=== PATIENT | male | born 1985 | race Caucasian/White ===

== ENCOUNTER 2017-09-26 01:35 | Observation (INO) | payer OTHER ==
[2017-09-26] MEDS ORDERED: morphine 2 MG INJ IV (02:00)
[2017-09-26] MEDS ORDERED: NITROGLYCERIN (SL) 0.4 MG TAB SL (02:00)
[2017-09-26 03:43] LABS: ADD MAN DIFF? NO
[2017-09-26 04:07] LABS: ANION GAP 12 (8-16); BLOOD UREA NITROGEN 7 mg/dl (7-20); CALCIUM 9.1 mg/dl (8.4-10.2); CARBON DIOXIDE 26 mmol/L (21-31); CHLORIDE 108 mmol/L (97-110); CREATININE 0.82 mg/dl (0.61-1.24); GLUCOSE 134 mg/dl (70-220); POTASSIUM 3.5 mmol/L (3.5-5.1); SODIUM 142 mmol/L (135-144)
[2017-09-26 04:15] LABS: WHITE BLOOD COUNT 11.3 10^3/ul (4.8-10.8)
[2017-09-26 04:15] LABS: BASOPHILS % 0.4 % (0.0-2.0); EOSINOPHILS # 0.1 10^3/ul (0.0-0.5); EOSINOPHILS % 0.6 % (0.0-7.0); HEMATOCRIT 39.3 % (42.0-52.0); LYMPHOCYTES # 2.2 10^3/ul (0.8-2.9); LYMPHOCYTES % 19.6 % (15.0-51.0); MEAN CORPUSCULAR HGB CONC 33.1 g/dl (32.0-37.0); MEAN CORPUSCULAR VOLUME 87.5 fl (82.0-101.0); MEAN PLATELET VOLUME 9.6 fl (7.4-10.4); MONOCYTE # 0.6 10^3/ul (0.3-0.9); NEUTROPHIL # 8.3 10^3/ul (1.6-7.5); NEUTROPHILS % 73.9 % (39.0-77.0); PLATELET COUNT 380 10^3/UL (140-415); RED BLOOD COUNT 4.49 10^6/ul (4.70-6.10); RED CELL DISTRIBUTION WIDTH 13.3 % (11.5-14.5)
[2017-09-26 04:17] LABS: TROPONIN-I < 0.010 ng/ml (0.000-0.120)
[2017-09-26] MEDS: BACLOFEN 10 MG TAB PO ×2 (09:12→12:28)
[2017-09-26 13:08] LABS: TROPONIN-I < 0.010 ng/ml (0.000-0.120)
[2017-09-26 14:46] LABS: D-DIMER 257.96 ng/ml (<460)
== END 2017-09-26 17:05 | disposition home or self-care (01) ==
LOC: MS4 01:35
PROVIDERS: Internal Medicine
DX: R07.89 Other chest pain (principal)
CPT/HCPCS: 80048; 83735; 84484; 85025; 85378; G0378